=== PATIENT | male | born 1975 | race African-American/Black ===

== ENCOUNTER 2018-10-11 16:29 | Emergency (ER) | payer MEDICAID ==
[~2018-10-11] VITALS: Ht 172.7 cm; Wt 131.0 kg
[~2018-10-11 16:29] MED LIST: ALLO300T2 PO; COLC0.6T2 PO; COR6 PO; DIGO125T82 PO; DULO60CA44 PO; FURO-151 PO; GABA800T97 PO; HYDR-3511 PO; HYDR1TAB4 PO; LISI-604 PO; OMEG500C PO; OMEP40CA34 PO; OXYC-23 PO; POTA20TA82 PO; PRAV40TA PO; RIVA20TA PO; [UNRECOGNIZED DRUG - CODE] PO
[2018-10-11 17:52] LABS: EOSINOPHILS % 3.5 % (0.0-5.0); HEMATOCRIT. 45.8 % (42.0-52.0); HEMOGLOBIN. 15.2 g/dL (14.0-18.0); LYMPHOCYTES % 27.3 % (20.0-50.0); MEAN CORPUSCULAR HEMOGLOBIN 32.8 pg (28.0-32.0); MEAN CORPUSCULAR VOLUME 98.4 fL (80.0-94.0); MEAN PLATELET VOLUME 10.1 fl (7.4-10.4); MONOCYTES % 9.1 % (2.0-8.0); NEUTROPHILS % 59.1 % (40.0-76.0); PLATELET 147 x1000/uL (130-400); RED BLOOD CELL COUNT 4.65 mill/uL (4.7-6.1); RED CELL DISTRIBUTION WIDTH 13.5 % (11.6-14.6)
[2018-10-11 17:57] LABS: CHLORIDE 102 mEq/L (98-107)
[2018-10-11 18:01] LABS: INR 1.3; PROTHROMBIN TIME 12.9 sec (9.1-11.1)
[2018-10-11] MEDS ORDERED: MORPHINE SULFATE 4 MG/ML CPJ (NOT FOR IM USE) IV STA (23:58)
[2018-10-11] MEDS ORDERED: ONDANSETRON HCL 4MG/2ML INJ IV STA (23:58)
[2018-10-12 00:56] LABS: INR 1.2; PARTIAL THROMBOPLASTIN TIME 30.8 sec (23.4-31.0)
[2018-10-12 01:26] LABS: DIGOXIN 0.4 ng/mL (0.9-2.0)
[2018-10-12 02:55] LABS: CLARITY URINE CLEAR (CLEAR); COLOR URINE YELLOW (YELLOW); KETONES URINE NEGATIVE (NEGATIVE); LEUKOCYTE ESTERASE URINE NEGATIVE (NEGATIVE); NITRITE URINE NEGATIVE (NEGATIVE); OCCULT BLOOD URINE NEGATIVE (NEGATIVE); PROTEIN URINE TRACE (NEGATIVE)
[2018-10-12 05:58] VITALS: BP 100/53
== END 2018-10-12 06:25 | disposition left against medical advice (07) ==
LOC: ER 16:29 → CANBEDREQ 10-12 19:13
DX: R00.2 Palpitations (principal); M10.9 Gout, unspecified; M25.561 Pain in right knee; I48.91 Unspecified atrial fibrillation; I11.0 Hypertensive heart disease with heart failure; I50.9 Heart failure, unspecified; E11.9 Type 2 diabetes mellitus without complications; Z79.01 Long term (current) use of anticoagulants
CPT/HCPCS: 36415; 71045; 73562; 80053; 80162; 81003; 83605; 83880; 84484; 84550; 85025; 85610; 85730; 87040; 87086; 93005; 93970; 96374; 96375; 99284; J2270; J2405; Z7610